=== PATIENT | male | born 1950 | race Caucasian/White ===

== ENCOUNTER → 2019-03-09 | Outpatient (CLI) | payer MEDICARE ==
--- NOTE | 2019-03-09 12:32 | CT ---
EXAMINATION TYPE: CT chest wo con DATE OF EXAM: 03/09/2019 COMPARISON: None HISTORY: Abnormal lung field. Patient thought left upper lobe. CT DLP: 317.6 mGycm, Automated exposure control for dose reduction was used. CONTRAST: Performed injected with 0 mL of Isovue 300. TECHNIQUE: Axial images were obtained at 5 mm thick sections. Reconstructed images are reviewed on [employer] computer in the coronal plane. FINDINGS: Portion of the thyroid visualized is normal. This may be somewhat low-lying extending towar ds the superior mediastinum. No suspicious lung nodules or focal infiltrates are present. Small scattered lymph nodes are within the mediastinum. The largest measures 1.1 cm which is enlarge d by CT criteria and resides within the precarinal space. The ascending aorta diameter at the level o f the main pulmonary artery is 4.0 cm. The main pulmonary artery diameter at the bifurcation is 2.6 cm. Coronary artery calcifications present. Limited CT sections are obtained through the upper abdomen. Abdomen is essentially unremarkable. IMPRESSIONS: 1. No acute pulmonary process.
== END | disposition home or self-care (01) ==
LOC: RADCTMAIN 11:37
PROVIDERS: ATTEND Internal Medicine Critical Care Medicine
DX: R91.8 Other nonspecific abnormal finding of lung field (principal)
CPT/HCPCS: 71250

== ENCOUNTER → 2020-01-01 | Outpatient (CLI) | payer MEDICARE | END | disposition home or self-care (01) | LOC: LABWHC1 10:05 | PROVIDERS: ATTEND Surgery | DX: U07.1 COVID-19 (principal) | CPT/HCPCS: 87635 ==

== ENCOUNTER 2020-01-03 10:50 | Day surgery (SDC) | payer MEDICARE ==
[2020-01-02 12:34] VITALS: BMI 27.1
[2020-01-03] MEDS ORDERED: SODIUM CHLORIDE 0.9% 500 ML 500 ML IV SCH (11:00)
[2020-01-03 11:19] LABS: Glucose,Whole Blood 186 mg/dL (75-99)
[2020-01-03 11:40] LABS: Basophils # (A) 0.1 k/uL (0-0.2); Basophils % (A) 1 %; Eosinophils # (A) 0.6 k/uL (0-0.7); Eosinophils % (A) 5 %; HCT 40.9 % (39.0-53.0); HGB 13.1 gm/dL (13.0-17.5); Hypochromasia Slight; Lymphocytes # (A) 1.2 k/uL (1.0-4.8); Lymphocytes % (A) 11 %; MCHC 32.1 g/dL (31.0-37.0); MCV 96.8 fL (80.0-100.0); Mean Platelet Volume 7.5; Monocytes # (A) 0.9 k/uL (0-1.0); Monocytes % (A) 8 %; Neutrophils # (A) 8.3 k/uL (1.3-7.7); Neutrophils % (A) 73 %; Platelet Count 348 k/uL (150-450); RBC 4.23 m/uL (4.30-5.90); RDW 15.5 % (11.5-15.5); WBC 11.3 k/uL (3.8-10.6)
[2020-01-03 11:47] LABS: Calcium 9.6 mg/dL (8.4-10.2); Potassium 4.1 mmol/L (3.5-5.1)
[2020-01-03] MEDS ORDERED: SODIUM CHLORIDE 0.9% 500 ML 500 ML IV ONE (12:16)
[2020-01-03 12:21] VITALS: RESP 16; TEMP 97.8
[2020-01-03] MEDS ORDERED: LIDOCAINE 1% INJ 10MG/ML (20 ML MDV) SQ ONE (12:27)
[2020-01-03] MEDS: MIDAZOLAM 2 MG/2 ML VIAL IV ONE ×2 (12:27→12:31)
[2020-01-03] MEDS ORDERED: fentaNYL (PF) 50 MCG/ML 2 ML AMP IV ONE (12:29)
[2020-01-03] MEDS ORDERED: HEPARIN SODIUM 1,000 UN/ML (10ML VL) IV ONE (12:44)
--- NOTE | 2020-01-03 13:54 | XR ---
EXAMINATION TYPE: XR chest 1V portable DATE OF EXAM: 01/03/2020 COMPARISON: NONE HISTORY: Status post central venous catheter placement TECHNIQUE: Single frontal view of the chest is obtained. FINDINGS: There is right jugular central venous catheter with the distal tip overlying superior vena cava. No evident pneumothorax or pleural effusion. Cardiomediastinal silhouette, pulmonary vasculari ty and andra within normal limits. There is eventration of the right hemidiaphragm. There are overlyin g cardiac leads. IMPRESSION: No evident complication status post central venous catheter placement.
--- NOTE | 2020-01-03 14:04 | IR ---
Fluoroscopy HISTORY: Dialysis catheter placement 0.6 minutes fluoroscopy time supplied to the referring clinician. 8 intraoperative C-arm images docu ment the procedure. See dictated report from vascular surgery.
[2020-01-03 16:04] VITALS: PULSE 76
[2020-01-03 16:09] VITALS: BP 148/80
--- NOTE | 2020-01-05 14:18 | P.OP ---
Date of Procedure: 01/03/20 Description of Procedure: DATE OF PROCEDURE: 01/03/2020 PREOPERATIVE DIAGNOSIS: [End-stage renal disease, on dialysis via peritoneal catheter, need for peritoneal catheter replacement]. PROCEDURE: 1. Ultrasound-guided micropuncture used to select the right IJ. 2. Fluoroscopic assistance a placement of 23 cm PermCath 3. Moderate conscious sedation PROCEDURE: This patient was brought to the laborer landscape. The right side of the neck and chest was prepped and draped in sterile manner. 1% lidocaine was infiltrated in the neck and chest area. After that, ultrasound was utilized and the right internal jugular vein was accessed. A wire was passed freely and the needle was removed. This was then turned towards the pre-proposed tunnel, is anesthetized. A small incision in the skin was made and the catheter was then tunneled. Serial dilation of the tract was performed over the wire with fluoroscopic guidance. The tear-away sheath and catheter placed. The inner cannula and wire removed. The catheter was then advanced anteriorly sheath was removed. The catheter aspirated and flushed freely. The catheter was sutured in place with 3-0 nylon. The skin was reapproximated at the neck with 4-0 Monocryl. Dressings were placed with the patient tolerated the procedure well. A post procedure chest x-ray is pending
== END 2020-01-03 14:54 | disposition home or self-care (01) ==
LOC: CATHCVL 10:50
PROVIDERS: ATTEND Surgery
DX: I12.0 Hypertensive chronic kidney disease with stage 5 chronic kidney disease or end stage renal disease (principal); N18.6 End stage renal disease; J44.9 Chronic obstructive pulmonary disease, unspecified; Z87.891 Personal history of nicotine dependence; Z98.890 Other specified postprocedural states
CPT/HCPCS: 36558; 76937; 77001; 80048; 85025; 71045; C1769 ×2; C1750; J2250; J0690; J2001; J3010; J1644

== ENCOUNTER → 2023-01-05 | Day surgery (SDC) | payer MEDICARE ==
[2023-01-01 16:52] VITALS: BMI 27.0
[~2023-01-05] MED LIST: ACETAMINOPHEN TAB 500 MG TAB PO PRN; BUPIVACAINE (PF) 0.25% 30 ML VIAL SQ ONE; DEXAMETHASONE SOD PHOSPHATE 4 MG/ML 1 ML VIAL IV ONE; HEPARIN SODIUM,PORCINE/PF 5,000 UNIT/0.5 ML SYRINGE SQ PRN; HYDROmorphone 0.5 MG/0.5 ML SYRINGE IVP PRN; KETAMINE 10 MG/ML 20 ML VIAL ONE; LACTATED RINGERS 1,000 ML IV SCH; LIDOCAINE 1% (10MG/ML) FOR IV START INTRADERMA PRN; MIDAZOLAM 2 MG/2 ML VIAL IV PRN; MIDAZOLAM 2 MG/2 ML VIAL ONE; MINERAL OIL 1 APPLIC/ML OIL TOPICAL ONE; ONDANSETRON 4 MG/2 ML VIAL IVP ONE; PROPOFOL 10 MG/ML 20 ML VIAL IV ONE; SODIUM CHLORIDE 0.9% 500 ML 500 ML IV ONE; fentaNYL (PF) 50 MCG/ML 2 ML AMP ONE; traMADol 50 MG TAB ONE; traMADol 50 MG TAB PO ONE
[2023-01-05 13:10] LABS: Glucose,Whole Blood 119 mg/dL (70-110)
[2023-01-05 13:13] VITALS: RESP 16; TEMP 98
[2023-01-05 13:19] LABS: Basophils # (A) 0.1 k/uL (0-0.2); Basophils % (A) 1 %; Eosinophils # (A) 0.5 k/uL (0-0.7); Eosinophils % (A) 3 %; HGB 10.2 gm/dL (13.0-17.5); Lymphocytes # (A) 1.4 k/uL (1.0-4.8); Lymphocytes % (A) 11 %; MCH 32.6 pg (25.0-35.0); MCHC 32.8 g/dL (31.0-37.0); MCV 99.5 fL (80.0-100.0); Macrocytosis Slight; Mean Platelet Volume 7.8; Monocytes # (A) 0.8 k/uL (0-1.0); Monocytes % (A) 6 %; Neutrophils # (A) 10.4 k/uL (1.3-7.7); Neutrophils % (A) 77 %; Platelet Count 373 k/uL (150-450); RBC 3.12 m/uL (4.30-5.90); RDW 15.7 % (11.5-15.5); WBC 13.5 k/uL (3.8-10.6)
[2023-01-05 13:26] LABS: INR 0.9 (<1.2); Prothrombin Time 10.1 sec (9.0-12.0)
[2023-01-05 13:30] LABS: Albumin 4.4 g/dL (3.5-5.0); Calcium 10.3 mg/dL (8.4-10.2); Total Bilirubin 0.7 mg/dL (0.2-1.3); Total Protein 7.7 g/dL (6.3-8.2)
[2023-01-05 13:36] LABS: Potassium 4.7 mmol/L (3.5-5.1)
--- NOTE | 2023-01-05 14:29 | P.GSHP ---
History of Present Illness H&P Date: 01/05/23 Chief Complaint: Renal failure 72-year-old male known to our service. Patient with history of previous dialysis catheter placement 3 years ago. Patient has had recurrent episodes of peritonitis and has not been using the catheter recently. It is nonfunctional at this time. The patient has been following with nephrology. He states that if he cannot resume peritoneal dialysis he will discontinue hemodialysis and go with hospice. Plan for today is removal and replacement of peritoneal dialysis catheter. Past Medical History Past Medical History: COPD, CVA/TIA, Diabetes Mellitus, Hyperlipidemia, Hypertension, Prostate Disorder, Renal Disease Additional Past Medical History / Comment(s): dialysis for kidney failure, TIA 2005-left eye "droopy" & affected vision, polio as a child History of Any Multi-Drug Resistant Organisms: None Reported Past Surgical History: Heart Catheterization With Stent, Hernia Repair, Orthopedic Surgery, Prostate Surgery Additional Past Surgical History / Comment(s): laser surg. for enlarged pro state, dialysis catheter insertion, umbilical hernia repair w/mesh, ORIF right ankle, hemodialysis catheter placed Past Anesthesia/Blood Transfusion Reactions: No Reported Reaction Date of Last Stent Placement:: 2022 Past Psychological History: No Psychological Hx Reported Smoking Status: Former smoker Past Alcohol Use History: None Reported Past Drug Use History: Marijuana Additional Drug Use History / Comment(s): occasional use - Past Family History Mother Family Medical History: No Reported History Medications and Allergies Home Medications Medication Instructions Recorded Confirmed Type Atorvastatin [Lipitor] 20 mg PO HS 01/02/20 01/05/23 History Fluticasone Propion/Salmeterol 1 inhalation PO BID 01/02/20 01/05/23 History [Advair 250-50 Diskus] Midodrine [ProAmatine] 5 mg PO DIRECTED PRN 01/02/20 01/05/23 History sitaGLIPtin [Januvia] 25 mg PO DAILY 01/02/20 01/05/23 History Albuterol Inhaler [Ventolin Hfa 1 - 2 puff INHALATION Q6H PRN 01/01/23 01/05/23 History Inhaler] Aspirin [Adult Low Dose Aspirin EC] 81 mg PO DAILY 01/01/23 01/05/23 History B Complex W-C No.20/Folic Acid 1 mg PO DAILY 01/01/23 01/05/23 History [Renal Caps Softgel] Clopidogrel [Plavix] 75 mg PO DAILY 01/01/23 01/05/23 History Ergocalciferol [Vitamin D2 (1250 1,250 mcg PO WEEKLY 01/01/23 01/05/23 History Mcg = 99647 Iu)] Lanthanum Carbonate [Lanthanum 1,000 mg PO DAILY 01/01/23 01/05/23 History Carbonate Chew] Losartan Potassium [Cozaar] 50 mg PO BID 01/01/23 01/05/23 History NIFEdipine [Procardia XL] 90 mg PO DAILY 01/01/23 01/05/23 History calcitrioL [Calcitriol] 0.5 mcg PO DAILY 01/01/23 01/05/23 History carvediloL 12.5 mg PO BID 01/01/23 01/05/23 History Allergies Allergy/AdvReac Type Severity Reaction Status Date / Time celestin flavor AdvReac back of Verified 01/05/23 13:27 throat swelling Surgical - Exam Vital Signs Temp Pulse Resp BP Pulse Ox 98 F 74 16 156/68 100 01/05/23 12:50 01/05/23 12:50 01/05/23 12:50 01/05/23 12:50 01/05/23 12:50 Physical exam: General: Well-developed, well-nourished HEENT: Normocephalic, sclerae nonicteric Abdomen: Nontender, nondistended, peritoneal catheter in place Extremities: No edema Neuro: Alert and oriented Results - Labs 01/05/23 13:00 01/05/23 13:00 Abnormal Lab Results - Last 24 Hours (Table) 01/05/23 01/05/23 01/05/23 Range/Units 13:00 13:00 13:01 WBC 13.5 H (3.8-10.6) k/uL RBC 3.12 L (4.30-5.90) m/uL Hgb 10.2 L (13.0-17.5) gm/dL Hct 31.0 L (39.0-53.0) % RDW 15.7 H (11.5-15.5) % Neutrophils # 10.4 H (1.3-7.7) k/uL BUN 70 H (9-20) mg/dL Creatinine 6.23 H (0.66-1.25) mg/dL Glucose 117 H (74-99) mg/dL POC Glucose (mg/dL) 119 H (70-110) mg/dL Calcium 10.3 H (8.4-10.2) mg/dL Alkaline Phosphatase 159 H (38-126) U/L Diabetes panel 01/05/23 Range/Units 13:00 Sodium 141 (137-145) mmol/L Potassium 4.7 (3.5-5.1) mmol/L Chloride 98 (98-107) mmol/L Carbon Dioxide 27 (22-30) mmol/L BUN 70 H (9-20) mg/dL Creatinine 6.23 H (0.66-1.25) mg/dL Glucose 117 H (74-99) mg/dL Calcium 10.3 H (8.4-10.2) mg/dL AST 38 (17-59) U/L ALT 31 (4-49) U/L Alkaline Phosphatase 159 H (38-126) U/L Total Protein 7.7 (6.3-8.2) g/dL Albumin 4.4 (3.5-5.0) g/dL Calcium panel 01/05/23 Range/Units 13:00 Calcium 10.3 H (8.4-10.2) mg/dL Albumin 4.4 (3.5-5.0) g/dL Pituitary panel 01/05/23 Range/Units 13:00 Sodium 141 (137-145) mmol/L Potassium 4.7 (3.5-5.1) mmol/L Chloride 98 (98-107) mmol/L Carbon Dioxide 27 (22-30) mmol/L BUN 70 H (9-20) mg/dL Creatinine 6.23 H (0.66-1.25) mg/dL Glucose 117 H (74-99) mg/dL Calcium 10.3 H (8.4-10.2) mg/dL Adrenal panel 01/05/23 Range/Units 13:00 Sodium 141 (137-145) mmol/L Potassium 4.7 (3.5-5.1) mmol/L Chloride 98 (98-107) mmol/L Carbon Dioxide 27 (22-30) mmol/L BUN 70 H (9-20) mg/dL Creatinine 6.23 H (0.66-1.25) mg/dL Glucose 117 H (74-99) mg/dL Calcium 10.3 H (8.4-10.2) mg/dL Total Bilirubin 0.7 (0.2-1.3) mg/dL AST 38 (17-59) U/L ALT 31 (4-49) U/L Alkaline Phosphatase 159 H (38-126) U/L Total Protein 7.7 (6.3-8.2) g/dL Albumin 4.4 (3.5-5.0) g/dL Assessment and Plan (1) Renal failure Narrative/Plan: 72-year-old male with renal failure. Proceed with peritoneal dialysis catheter removal. Simultaneously we'll try to place a new dialysis catheter on the opposite side of the abdomen. Patient was made aware that this may be unsuccessful. Risks of bleeding, infection, poor function, fluid leak, hernia, recurrent peritonitis reviewed. He understands and wishes to proceed. Current Visit: Yes Status: Acute Code(s): N19 - UNSPECIFIED KIDNEY FAILURE SNOMED Code(s): 30495484
--- NOTE | 2023-01-05 15:54 | P.OP ---
Date of Procedure: 01/05/23 Procedure(s) Performed: PREOPERATIVE DIAGNOSIS: Renal failure POSTOPERATIVE DIAGNOSIS: Same PROCEDURE: Peritoneal dialysis catheter insertion and removal SURGEON: Melba EBL: Minimal ANESTHESIA: Sedation plus local COMPLICATIONS: None OPERATIVE PROCEDURE: The patient was placed in the operative table in the supine position. The abdomen was prepped and draped in usual sterile fashion. A small vertical incision was made in the left lateral abdominal location. This incision was lateral to a previous dialysis catheter placement incision. Dissection down through the subcutaneous tissues took place using electrocautery. The the muscular layer was bluntly. The peritoneum was visualized. An 0 Vicryl pursestring was placed. A small opening in the peritoneum took place using a Metzenbaum scissors. There were no adhesions to the suture that was placed. The pigtail catheter was advanced into the pelvis over a stylette. No resistance was met. The inner cuff was secured to the peritoneum using the 0 Vicryl pursestring that was placed. The catheter was tunneled to an exit site in the left lateral lower quadrant. The catheter was connected to the 1 L bag of saline and approximated 800 mL of saline was easily introduced into the peritoneal cavity. The fluid was then allowed to evacuate. The majority of the fluid was returned. The anterior rectus fascia was then reapproximated using a running 0 Vicryl stitch. The subcutaneous tissues reprepped using 3-0 Vicryl sutures and the skin using 4-0 Monocryl sutures. The outpatient dialysis adapter was applied to the end of the catheter. Sterile dressings were then applied after skin glue was placed over the incision. Next the previous right paramedian incision was re-incised after localizing the skin. The subcutaneous tissues were divided using electrocautery. Blunt dissection around the cuff that was present at the fascia and peritoneum took place. The cuff was fully mobilized. The catheter was removed from the peritoneal cavity. The outer cuff was already external to the skin. The catheter was cut on the other side of the skin and the catheter was removed. The fascial defect was closed using a single [id number] 0 Vicryl stitch. The subcutaneous tissues were closed using 3-0 Vicryl sutures and the skin using 4-0 Monocryl sutures. Skin glue and sterile dressings were applied. DISPOSITION: Stable to recovery room
[2023-01-05 16:58] LABS: Glucose,Whole Blood 91 mg/dL (70-110)
[2023-01-05 17:11] VITALS: BP 188/65; PULSE 63
== END ==
LOC: OR 12:08
PROVIDERS: ATTEND Surgery
DX: N19 Unspecified kidney failure (principal); J44.9 Chronic obstructive pulmonary disease, unspecified; E11.22 Type 2 diabetes mellitus with diabetic chronic kidney disease; E78.5 Hyperlipidemia, unspecified; I10 Essential (primary) hypertension; Z98.890 Other specified postprocedural states; Z87.891 Personal history of nicotine dependence; Z86.73 Personal history of transient ischemic attack (TIA), and cerebral infarction without residual deficits; Z79.51 Long term (current) use of inhaled steroids; Z49.02 Encounter for fitting and adjustment of peritoneal dialysis catheter; Z79.84 Long term (current) use of oral hypoglycemic drugs; Z79.82 Long term (current) use of aspirin; Z79.899 Other long term (current) drug therapy
CPT/HCPCS: 86900; 86901; 80053; 85025; 85610; 86850; 49422; J2250; J1100; J0690; J2405; J3010; J2704; J1644